=== PATIENT | male | born 1940 | race Caucasian/White ===

== ENCOUNTER 2017-01-07 20:35 | Emergency (ER) | payer MEDICARE ==
[2016-02-14 11:09] VITALS: BMI 35.2
[~2017-01-07 20:35] MED LIST: ASPIRIN EC81 M1 PO; ASPIRIN325 MG PO; BACTRIM DS TABL1 TAB PO; BENADRYL25 MG PO; ELIQUIS2.5 MG PO; FOLATE0.4 MG PO; GLIMEPIRIDE4 MG PO; GLUCOPHAGE500 MG PO; HYDROCODONE-APA1 TAB PO; METOPROLOL TART25 MG PO; OMEPRAZOLE20 M1 PO; ZYRTEC10 MG PO
[2017-01-07 23:18] LABS: APPEARANCE SLT CLOUDY (CLEAR); BILIRUBIN NEGATIVE (NEGATIVE); COLOR YELLOW (YELLOW); GLUCOSE 500 mg/dL (NEGATIVE); KETONE NEGATIVE (NEGATIVE); LEUKOCYTE ESTERASE 2+ (NEGATIVE); NITRITE NEGATIVE (NEGATIVE); PROTEIN NEGATIVE (NEGATIVE); UROBILINOGEN NORMAL (NORMAL)
[2017-01-07 23:23] LABS: BACTERIA MANY /hpf (NONE SEEN); EPITHELIAL CELLS 0-5 /hpf (0-5); RED CELLS - URINE 0-5 /hpf (0-5)
== END 2017-01-07 23:38 | disposition home or self-care (01) ==
LOC: D.ER 20:35
PROVIDERS: Emergency Medicine
DX: R33.9 Retention of urine, unspecified (principal); E11.9 Type 2 diabetes mellitus without complications; Z85.46 Personal history of malignant neoplasm of prostate; N39.0 Urinary tract infection, site not specified

== ENCOUNTER 2017-11-07 11:48 | Inpatient (IN) | payer MEDICARE ==
[~2017-11-07] VITALS: Ht 186.7 cm; Wt 126.8 kg
--- NOTE | ~2017-11-07 | HEMODYNAMI ---
PATIENT:CHERELLE AGEE MEDICAL RECORD: [id number] : 40 [facility] [id number] ADMISSION DATE: 11/07/17 Generatedon:11/07/201713:39 Patient name: CHERELLE AGEE Patient #: [id number] SSN: DO B: 1940 Date of study: 11/07/2017 Page: Of Hemodynamic Procedure Report Patient Data Patient Demographics Procedure consent was obtained First Name: CHERELLE Gender: Male Last Name: CYNDIE : 1940 Patient #: [id number] Age: 77 year(s) Race: Unknown Additional ID: [id number] Contact details Address: [address] [place] [address] State: [place] City: [facility] Zip code: [address] Admission Admission Data Admission Date: 11/07/2017 Admission Time: 13:30 Room #: D.T02 Procedure Procedure Types Cath Procedure Diagnostic Procedure LHC LHC w/Coronaries Temporary Pacemaker PCI Procedure AMI/SVG/AXMINSTER WEAVER PTCA or Stent AMI-BMS/NATALY Initial Procedure Description Procedure Date Procedure Date: 11/07/2017 Procedure Start Time: 13:01 Procedure End Time: 13:38 Procedure Staff Name Function Beka Garcia MD Performing Physician Carmine Meda RT Monitor Jessika Cline RN Nurse Dax Knapp RT Scrub Procedure Data Cath Procedure Fluoroscopy Diagnostic fluoroscopy Total fluoroscopy Time: 5.9 time: 5.9 min min Diagnostic fluoroscopy Total fluoroscopy dose: 740 dose: 740 mGy mGy Contrast Material Contrast Material Type Amount (ml) Isovue 300 186 Entry Location Entry Primary Successful Side Size Upsize Upsize Entry Closure Nieto ccessful Closure Location (Fr) 1 (Fr) 2 (Fr) Remarks Device Remarks Femoral Right 6 Fr Exoseal artery Short Femoral Right 7 Fr Manual vein Short Compression Estimated blood loss: 10 ml Diagnostic catheters Device Type Used For End Catheter Placement MULTIPACK JL 4.0 5Fr Procedure catheter DIAGNOSTIC JL 3.5 5Fr Procedure catheter ([id number]) DIAGNOSTIC JL 3.5 5Fr Procedure catheter ([id number]) MULTIPACK 3DRC 5Fr Procedure catheter MULTIPACK Pigtail 5 Fr Procedure catheter Procedure Complications No complications Procedure Medications Medication Administration Route Dosage Oxygen NC 2 l/min Lidocaine 2% added to field 20 Heparin Flush Bag added to field 2 bags (1000units/500ml NS) Zofran I.V. 4 mg 0.9% NaCl I.V. bolus 1000 ml Versed I.V. 1 mg Fentanyl I.V. 50 mcg Versed I.V. 1 mg Fentanyl I.V. 50 mcg Heparin Bolus I.V. 5000 units Fentanyl I.V. 100 mcg Integrilin (Bolus I.V. 11.3 ml 2mg/ml) unlisted medication I.V. 30 mg Plavix P.O. 600 mg Hemodynamics Rest Heart Rate: 49 (bpm) Pressure Samples Time Site Value (mmHg) Purpose Heart Use Rate(bpm) 13:11 AO 114/56(77) Snapshot 50 13:15 LV 131/16,25 Snapshot 61 13:16 AO 130/64(89) Pullback 60 13:16 LV 122/19,24 Pullback 60 Gradients Valve Time Site 1 Site 2 Mean SEP/DFP Peak To Heart Use (mmHg) (sec/min) Peak Rate (mmHg) (bpm) Aortic 13:16 LV AO 0 60 122/19,24 130/64(89) Calculations Valve P-P Mean Valve Index Valve Source Name Gradient Area Flow (cm2) Aortic 0 0 Snapshots Pre Cath Intra NCS Post Cath Vital Signs Time Heart Resp SPO2 etCO2 NIBP (mmHg) Rhythm Pain Status Sedation Rate (ipm) (%) (mmHg) Level (bpm) 12:53:24 49 11 98 0 130/69(91) NSR 9 (11) , 10(A) Excruciating unbearable 12:57:52 48 17 100 0 133/71(111) NSR 9 (11) , 10(A) Excruciating unbearable 13:02:15 52 19 98 0 116/71(100) NSR 9 (11) , 10(A) Excruciating unbearable 13:06:37 28 13 98 0 105/71(84) NSR 9 (11) , 10(A) Excruciating unbearable 13:10:57 48 10 99 0 118/65(103) NSR 9 (11) , 10(A) Excruciating unbearable 13:15:21 78 29 99 0 125/68(105) NSR 9 (11) , 10(A) Excruciating unbearable 13:19:45 61 15 99 0 132/77(112) NSR 9 (11) , 10(A) Excruciating unbearable 13:24:14 61 15 99 0 139/73(115) NSR 9 (11) , 10(A) Excruciating unbearable 13:28:44 60 33 100 0 143/80(119) NSR 9 (11) , 10(A) Excruciating unbearable 13:33:19 67 14 100 0 142/73(109) NSR 9 (11) , 10(A) Excruciating unbearable 13:37:51 59 10 100 0 141/77(118) NSR 9 (11) , 10(A) Excruciating unbearable Medications Time Medication Route Dose Verified Delivered Reason Notes Effectiveness by by 12:55:15 Oxygen NC 2 Beka Buffie used for l/min St Frank Cline RN procedure 12:55:21 Lidocaine 2% added 20ml Beka Beka for local to vial [facility] anesthetic field MD MIRELES 12:55:27 Heparin Flush added 2 Beka Beka used for Bag to bags [facility] procedure (1000units/500ml field MD MIRELES NS) 12:55:35 Zofran I.V. 4 mg Beka Jessika Per physician [facility] Frank Cline RN, MD 12:55:44 0.9% NaCl I.V. 1000 Beka Rosen Per physician bolus ml [facility] Frank Cline RN, MD 12:58:09 Versed I.V. 1 mg Beka Buffie for sedation [facility] Frank Cline RN, MD 12:58:14 Fentanyl I.V. 50 Beka Buffie for sedation mcg [facility] Frank Cline RN, MD 13:01:38 Versed I.V. 1 mg Ebka Buffie for sedation [facility] Frank Cline RN, MD 13:01:42 Fentanyl I.V. 50 Beka Buffie for sedation mcg [facility] Frank Cline RN, MD 13:02:27 Heparin Bolus I.V. 5000 Beka Buffie for verifi ed units [facility] Frank Cline RN anticoagulation with dr MD abdi 13:13:23 Fentanyl I.V. 100 Beka Buffie for sedation [facility] St Frank Cline RN, MD 13:14:52 Integrilin I.V. 11.3 Beka Rosen for wasted (Bolus 2mg/ml) ml St Frank Cline RN antiplatelet 8.7 ml therapy of vial 13:22:49 toradol I.V. 30 mg Beka Rosen Per physician [facility] Frank Cline RN, MD 13:34:56 Plavix P.O. 600 Beka Rosen for mg [facility] Frank Cline RN antiplatelet therapy Procedure Log Time Note 12:30:50 Dax Knapp RT(R) (CV) sent for patient. Start room use. 12:40:57 Time tracking: Regular hours (M-F 7:00 - 5:00) 12:41:01 Plan of Care:Hemodynamics will remain stable., Cardiac rhythm will remain stable., Comfort level will be maintained., Respiratory function will remain adequate., Patient/ family verbilizes understanding of procedure., Procedure tolerated without complication., Recovers from procedure without complications.. 12:45:20 Use device set Radial Dx or PCI 12:45:23 Use device set NOEMY PCI 12:46:09 Patient received from ED to CCL 3 Alert and oriented. Tansferred to table in Supine position. 12:46:10 Correct patient and procedure confirmed by team. 12:46:11 ECG and BP/O2 sat monitors applied to patient. 12:46:12 Signed procedure consent form obtained from patient. 12:52:02 Vital chart was started 12:55:15 Oxygen 2 l/min NC was administered by Jessika Cline RN; used for procedure; 12:55:21 Lidocaine 2% 20ml vial added to field was administered by Beka Garcia MD; for local anesthetic; 12:55:27 Heparin Flush Bag (1000units/500ml NS) 2 bags added to field was administered by Beka Garcia MD; used for procedure; 12:55:35 Zofran 4 mg I.V. was administered by Jessika Cline RN; Per physician; 12:55:44 0.9% NaCl 1000 ml I.V. bolus was administered by Jessika Cline RN; Per physician; 12:55:56 Baseline sample Acquired. 12:55:56 Full Disclosure recording started 12:55:59 Rhythm: sinus bradycardia 12:56:04 H&P Date Dictated: 11/07/2017 Emergent; H&P N/A. 12:56:07 Pre-procedure instructions explained to patient. 12:56:07 Pre-op teaching completed and patient verbalized understanding. 12:56:10 Family in waiting room. 12:56:11 Patient NPO since Midnight. 12:56:13 Is the patient allergic to Iodine/contrast media? No. 12:56:14 Is patient on blood thinner?No 12:56:16 Patient diabetic? Yes. 12:56:17 If diabetic: On Metformin? Yes 12:56:19 If on Metformin: Last Dose? 11/06/2017 12:56:23 Previous problem with sedation/anesthesia? No ? 12:56:24 Snore? Yes 12:56:25 Sleep apnea? No 12:56:26 Deviated septum? No 12:56:26 Opens mouth fully? Yes 12:56:27 Sticks out tongue? Yes 12:56:29 Airway obstruction? No ? 12:56:31 Dentures? No ? 12:56:33 Pre procedure: right dorsailis pedis pulse 1+ Palpable, but thready & weak; easily obliterated 12:56:45 Patient pain scale 9/10 Physician observed.. 12:56:53 IV patent on arrival in left hand with 0.9% NaCl at KVO. 12:56:58 IV patent on arrival in right forearm with 0.9% NaCl at KVO. 12:57:00 Lab results completed and on chart. 12:57:03 Right groin area was prepped with chlora-prep and draped in sterile fashion 12:57:03 Alarms reviewed by R. N. 12:57:04 Sharps counted by scrub and verified by R.N. 12:57:05 --------ALL STOP TIME OUT------ 12:57:05 Final Timeout: patient, procedure, and site verified with staff and physician. All members of the team are in agreement. 12:57:07 Right groin site verified by team. 12:57:11 Physical assessment completed. ASA score P 3 - A patient with severe systemic disease as per Beka Garcia MD. 12:57:13 Sedation plan: IV Moderate Sedation Medication:Versed, Fentanyl 12:57:53 ACIST Syringe (74925) opened to sterile field. 12:57:54 Bag Decanter (2002S) opened to sterile field. 12:57:55 ACIST Hand Control (41128) opened to sterile field. 12:57:56 ACIST Manifold (38183) opened to sterile field. 12:57:56 Tegaderm 4 x 4 (1626W) opened to sterile field. 12:58:07 Medline Cath Pack ([id number]) opened to sterile field. 12:58:07 DIAGNOSTIC WIRE .035 260cm J wire (354543) opened to sterile field. 12:58:09 Versed 1 mg I.V. was administered by Jessika Cline RN; for sedation; 12:58:10 INFLATOR Merit BasixCompak (JD7290) opened to sterile field. 12:58:11 SHEATH 7FR Bolt (ZPA566) opened to sterile field. 12:58:14 Fentanyl 50 mcg I.V. was administered by Jessika Cline RN; for sedation; 12:58:14 SHEATH Prelude 6Fr 0.035 (TIU-4K-36-035) opened to sterile field. 12:58:15 5Fr J Tip Temporary Pacing Catheter ([id number]) opened to sterile field. 12:58:23 Use device set Multipack Set 12:58:25 DIAGNOSTIC Multipack 5Fr catheter set (KY4655) opened to sterile field. 13:01:11 Procedure started. 13:01:14 Local anesthetic to right femoral artery with Lidocaine 2% by Beka Garcia MD.INITIAL ACCESS ONLY 13:01:25 A 6 Fr Short sheath was inserted into the Right Femoral artery 13:01:38 Versed 1 mg I.V. was administered by Jessika Cline RN; for sedation; 13:01:38 A 7 Fr Short sheath was inserted into the Right Femoral vein 13:01:42 Fentanyl 50 mcg I.V. was administered by Jessika Cline RN; for sedation; 13:01:56 Zero performed for pressure channel P1 13:02:27 Heparin Bolus 5000 units I.V. was administered by Jessika Cline RN; for anticoagulation; verified with dr abdi 13:03:28 Temporary pacer inserted 13:05:01 Temporary pacer turned on with the following settings: Rate 50, MA 3, Mode: Asynchronous. 13:05:12 A MULTIPACK JL 4.0 5Fr catheter was advanced over the wire and used for Procedure. 13:06:49 Catheter removed. unable to cannulate vessel. 13:06:56 A DIAGNOSTIC JL 3.5 5Fr catheter (532051O) was advanced over the wire and used for Procedure. 13:09:12 Catheter removed. Unable to cannulate vessel due to tortuous Aorta. Sheath exchanged for long sheath. 13:09:19 SHEATH 6FR Brite Tip 35cm (902902C) opened to sterile field. 13:09:24 A DIAGNOSTIC JL 3.5 5Fr catheter (702005E) was advanced over the wire and used for Procedure. 13:11:39 LCA angiography performed. 13:12:42 Catheter removed. 13:12:55 A MULTIPACK 3DRC 5Fr catheter was advanced over the wire and used for Procedure. 13:13:23 Fentanyl 100 mcg I.V. was administered by Jessika Cline RN; for sedation; 13:13:36 RCA angiography performed. 13:14:24 Catheter removed. 13:14:32 A MULTIPACK Pigtail 5 Fr catheter was advanced over the wire and used for Procedure. 13:14:50 WHISPER 300cm guide wire ([id number]) opened to sterile field. 13:14:52 Integrilin (Bolus 2mg/ml) 11.3 ml I.V. was administered by Jessika Cline RN; for antiplatelet therapy; wasted 8.7 ml of vial 13:16:22 LV angiography performed. 13:16:24 LV gram done using OLIVEIRA 13:16:31 EF : 50 % 13:16:33 LV hemodynamics recorded. 13:16:36 Injector settings: Ml/sec: 10, Volume: 20, 13:17:07 Aortic Root visualized 13:17:20 Injector settings: Ml/sec: 15, Volume: 30, 13:18:14 Catheter removed. 13:18:18 GUIDE 6FR HS I catheter (LA6HSI) opened to sterile field. 13:18:50 6 Fr HS 1 guide catheter was inserted over the wire 13:19:24 Whisper wire advanced. 13:20:14 Wire advanced across lesion. 13:21:54 Place stent Inflation Number: 1 A INTEGRITY OTW 4.0 X 9 stent ([id number]) was prepped and advanced across the Dist RCA. The stent was deployed at 14 RANDA for 0:45 (min:sec). 13:22:36 Stent catheter was removed intact over wire. 13:22:37 Wire removed. 13:22:37 Guide catheter removed. 13::45 Temporary pacer turn off 13::46 Temporary pacer removed 13::49 toradol 30 mg I.V. was administered by Jessika Cline RN; Per physician; 13:23:39 Brite tip sheath exchange for short 6. 13:24:04 SHEATH 6Fr Prelude ([id number]) opened to sterile field. 13:24:26 EXOSEAL 6Fr (EX600) opened to sterile field. 13:25:06 Sheath removed intact; hemostasis achieved with Exoseal to the Right Femoral artery. 13:27:07 Procedure ended.(Physican Out) 13:27:32 Fluoroscopy time 05.90 minutes. 13:27:37 Fluoroscopy dose: 740 mGy 13:27:37 Flurop Dose total: 740 13:27:58 Contrast amount:Isovue 300 186ml. 13:28:09 Sharps counted by scrub and verified by R.N. 13:31:15 Sheath removed intact; hemostasis achieved with Manual Compression to the Right Femoral vein. 13:31:17 Insertion/operative site no bleeding no hematoma. 13:31:20 Post-op/insertion site Right Femoral artery dressed using a 4 x 4 and Tegaderm. 13:31:21 Post Procedure Pulses reassessed and unchanged 13:31:24 Post-procedure physical assessment completed. ASA score P 3 - A patient with severe systemic disease as per Beka Garcia MD. 13:31:33 Post procedure rhythm: sinus rhythm 13:31:36 Estimated blood loss: 10 ml 13:31:38 Post procedure instruction explained to patient.Patient verbalizes understanding. 13:31:38 Patient needs reinforcement of post procedure teaching. 13:31:59 Procedure and supply charges have been captured, reviewed, submitted and are correct. 13:32:02 Procedure Complication : No complications 13:34:56 Plavix 600 mg P.O. was administered by Jessika Cline RN; for antiplatelet therapy; 13:38:30 Vital chart was stopped 13:38:31 See physician's report for complete and final results. 13:38:35 Report given to PCU. 13:38:38 Patient transfered to PCU with Bed. 13:38:41 Procedure ended. 13:38:41 Full Disclosure recording stopped 13:38:45 End room use (Document Last) Intervention Summary Intervention Notes Time ActionType Lesion and Equipment Action# Pressure Duration Attributes Used 13:21:54 Place stent Dist RCA INTEGRITY 1 14 00:45 OTW 4.0 X 9 stent ([id number]) Device Usage Item Name Manufacture Quantity Catalog Hospital Part Current M inimal Lot# / Number Charge Number Stock Stock Serial# Code ACIST Syringe Acist 1 62340 087108 685648 332393 2 0 (16094) Medical Systems WorldRemit Bag Decanter Microtek 1 2001S 220816 30445 843642 5 () Medical Inc. ACIST Hand Acist 1 57208 900585 839065 608676 5 Control (14580) Medical Systems WorldRemit ACIST Manifold Acist 1 62330 362692 134438 556378 5 (83880) Medical Systems Inc Tegaderm 4 x 4 3M 1 1626W 875301 479022 483553 5 (1626W) Medline Cath Cardinal 1 [id number] 073635 66931 373594 5 Pack Health ([id number]) DIAGNOSTIC WIRE St Jorge 1 795480 349056 097515 356948 3 0 .035 260cm J wire (550556) INFLATOR Merit Merit 1 GU6416 499675 188553 096890 1 5 BasixCompak Medical (HG6889) SHEATH 7FR Terumo 1 GPS431 449995 833076 494582 5 Bolt (NSF386) SHEATH Prelude Merit 1 WAO-5C-06-35 012291 3492908 918010 5 6Fr 0.035 Medical (SKJ-1F-36-035) 5Fr J Tip Dacosta 1 [id number] 664743 03846 981031 2 Temporary Lifesciences Pacing Catheter ([id number]) DIAGNOSTIC Cardinal 1 GF1035 517384 18154 396595 3 0 Multipack 5Fr Health catheter set (VH5213) MULTIPACK JL Cardinal 1 708343 5 4.0 5Fr Health catheter DIAGNOSTIC JL Cardinal 1 [id number] 986614 342933 501328 5 3.5 5Fr Health catheter (630422C) SHEATH 6FR Cardinal 1 [id number] 727106 134677 815616 1 Brite Tip 35cm Health (154908H) MULTIPACK 3DRC Cardinal 1 449240 5 5Fr catheter Health MULTIPACK Cardinal 1 790653 5 Pigtail 5 Fr Health catheter WHISPER 300cm Garcia 1 [id number] 536077 031900 326492 5 guide wire Vascular (1088154PC) GUIDE 6FR HS I Medtronic 1 LA6HSI 918702 56115 813600 1 catheter (LA6HSI) INTEGRITY OTW Medtronic 1 [id number] 630415 4536374 4 [id number] 4.0 X 9 stent ([id number]) SHEATH 6Fr Merit 1 [id number] 823809 343310 821995 5 Prelude Medical ([id number]) EXOSEAL 6Fr Cardinal 1 EX600 747396 748823 195999 1 0 (EX600) Health Signature Audit [place] Stage Time Signature Unsigned Intra-Procedure 11/07/2017 Carmine Mead 1:39:22 PM RT(R) Signatures Monitor : Carmine Mead RT Signature : Date : Time : [place] [id number] [place] [address]
--- NOTE | ~2017-11-07 | HP ---
PATIENT: CHERELLE AGEE MEDICAL RECORD: [id number] ACCOUNT: [id number] LOCATION:[address] : 40 ADMISSION DATE: 11/07/17 HISTORY AND PHYSICAL EXAMINATION HISTORY OF PRESENT ILLNESS: A 77-year-old gentleman with a known history of coronary artery disease, status post stenting, unknown vessel stented previously, presented to the ER with 3-hour history of marked dyspnea and chest pain. He has 2 types of pain, one acute coronary syndrome type of symptomatology and second more of a musculoskeletal and was left shoulder pain. He has underlying right bundle branch block. Difficult to interpret acute coronary syndrome, he is intermittently bradycardic, being brought to director of labor relations on an urgent basis. PAST MEDICAL HISTORY: Includes; 1. History of diabetes mellitus. 2. Hypertension. 3. Coronary artery disease as described above. 4. Osteoarthritis. MEDICATIONS: Include aspirin 81 mg p.o. q. day, Amaryl 0.5 b.i.d., metformin 2 gram b.i.d., omeprazole 20 b.i.d. SOCIAL HISTORY: Nonsmoker, nondrinker. PHYSICAL EXAMINATION: GENERAL Elderly gentleman, in mild distress. VITAL SIGNS: 116/72, pulse between 40 and 63. HEENT: Normocephalic, atraumatic. NECK: No bruits noted. HEART: Cecilio. S4 gallop is noted. LUNGS: Clear. EXTREMITIES: Pulse 2+. No edema. DIAGNOSTIC DATA: ECG shows underlying right bundle. IMPRESSION: director of laboratory operations on urgent basis. Given his symptomatology, we will also plan for aortography as well as temporary pacer. TRANSINT:[id number] Voice Confirmation ID: [id number] DOCUMENT ID: [id number] ULISSES SALGUERO MD at 0816 CC: [id number] DICTATION DATE: 11/07/17 1334 AUTO HEATER MECHANIC: 11/07/17 1448 ADM IN [place] [id number] [place] [id number]
--- NOTE | ~2017-11-07 | DS ---
PATIENT:CHERELLE AGEE :40 MEDICAL RECORD: [id number] DISCHARGE SUMMARY ADMISSION DATE: 11/07/17 DISCHARGE DATE: 11/08/17 DATE OF ADMISSION: 11/07/2017. DATE OF DISCHARGE: 11/08/2017 DIAGNOSES: 1. Acute coronary syndrome. 2. Hypertension. 3. Diabetes mellitus. BRIEF HISTORY AND HOSPITAL COURSE: Admitted with acute coronary syndrome including bradyarrhythmias brought to the laborer stores. Temporary wire was placed. He underwent stenting of the right coronary without sequelae. Discharged home in good condition. DIET: ADA diet. ACTIVITY: As tolerated. FOLLOWUP: In the office approximately 1 month. TRANSINT:[id number] Voice Confirmation ID: [id number] DOCUMENT ID: [id number] ULISSES SALGUERO MD at 1505 CC: [id number] DICTATION DATE: 12/16/17 1414 CITY DISTRIBUTION CLERK: 12/16/17 1431 DIS IN 11/08/17 [place] [id number] [place] [address]
--- NOTE | ~2017-11-07 | OP ---
PATIENT NAME: CHERELLE AGEE MEDICAL RECORD: [id number] :40 LOCATION:D.M2 D.2119 ADMISSION DATE:11/07/17 SURGEON: ULISSES SALGUERO MD DATE OF OPERATION: 11/07/2017 PROCEDURES: Left heart catheterization, temporary pacemaker, right femoral artery and vein approach respectively. CATHETERS: A 7-Peruvian on the left side, 6 on the arterial side. Procedure was well tolerated and the patient returned to perez, sheath removed. ExoSeal device was placed and manual pressure was held in venous line. DESCRIPTION OF PROCEDURE: Temporary pacemaker under fluoroscopic guidance: The temporary lead was placed into the right ventricular apex without difficulty. After adequate thresholds were obtained, the patient was set on baseline, backup at 50 beats per minute at output of 3. Left heart cath, selective angiography: Left ventriculography in 30-degree OLIVEIRA view normal wall motion and normal systolic function. Ascending aortogram shows a minimally dilated aortic root, no evidence of dissection. Minimal atherosclerotic debris. CORONARY ANATOMY: LEFT MAIN: Left main is free of disease. LAD: A small vessel, does not reach the apex, free of disease. CIRCUMFLEX: Again, small vessel. Probably middle part of the lateral wall, free of disease. RIGHT CORONARY ARTERY: At the takeoff of huge PD and PL shows a stenosis about 80%. PLAN: Intervention momentarily. INTERVENTION: Using indwelling 6-Peruvian sheath, hockey stick guide and catheter provided excellent guide catheter support, followed by a 300 cm Whisper wire to place this portion of the PDA. The stent deployed was a 4.0 x 9 mm [id number] stent up to 14 atmospheres. Final angiography shows excellent resolution, 80% stenosis, no significant residual. ANDRIA flow was 3 throughout the procedure. Heparin and Integrilin were used during the case. Sheath closed with ExoSeal device. TRANSINT:[id number] Voice Confirmation ID: [id number] DOCUMENT ID: [id number] ULISSES SALGUERO MD at 0816 CC: [id number] DICTATION DATE: 11/07/17 1332 MARKETING TECHNOLOGIST: 11/07/17 1418 [place] [address]
[2017-11-07] MEDS ORDERED: ASPIRIN325 MG PO (11:52)
[2017-11-07 12:16] LABS: BASOPHILS 0.2 % (0-2); HEMATOCRIT 38.2 % (42.0-54.0); HEMOGLOBIN 12.9 g/dL (13.5-17.5); IMMATURE GRANULOCYTES 0.2 % (0-5); LYMPHOCYTES 17.7 % (15-50); MCHC 33.8 g/dL (31.0-37.0); MCV 88.8 fL (80.0-100.0); MEAN PLATELET VOLUME 9.7 fL (7.4-10.4); MONOCYTES 5.1 % (2-11); NEUTROPHILS 75.8 % (40-80); PLATELET COUNT 230 10x3/uL (130-400); RDW 13.5 % (11.5-14.5); WBC 8.9 10x3/uL (4.8-10.8)
[2017-11-07 12:37] LABS: ALBUMIN 3.5 g/dL (3.4-5.0); ALKALINE PHOSPHATASE 78 U/L (46-116); ALT (SGPT) 41 U/L (10-68); CALC OSMOLALITY 291 mosm/kg (275-300); CALCIUM 9.3 mg/dL (8.5-10.1); CARBON DIOXIDE 28.4 mmol/L (21.0-32.0); CHLORIDE - SERUM 106 mmol/L (98-107); CREATININE - SERUM 1.5 mg/dL (0.6-1.3); GLUCOSE 221 mg/dL (74-106); POTASSIUM - SERUM 4.3 mmol/L (3.5-5.1); PROTEIN - SERUM 7.4 g/dL (6.4-8.2); SODIUM 142 mmol/L (136-145); UREA NITROGEN 19 mg/dL (7-18); eGFR NON AFRICAN AMERICAN 48 mL/min (90-120)
[2017-11-07 12:44] LABS: LIPASE 236 U/L (73-393); PRO BNP 107 pg/mL (0-450); TROPONIN-I < 0.017 ng/mL (0.000-0.060)
[2017-11-07] MEDS ORDERED: GLIMEPIRIDE1 MG PO (15:05)
[2017-11-07 18:57] VITALS: Ht 186.7 cm; Wt 126.8 kg
[2017-11-07 20:13] VITALS: BP 138/59
[2017-11-08 01:27] VITALS: BP 103/64
[2017-11-08 05:13] VITALS: BP 137/63
[2017-11-08 07:40] VITALS: BP 132/67
[2017-11-08] MEDS ORDERED: PLAVIX75 MG PO (09:01)
[2017-11-08] MEDS ORDERED: MEDROL DOSE PACK4 MG PO (09:02)
== END 2017-11-08 10:40 | disposition home or self-care (01) | DRG 249 ==
LOC: D.ER 11:48 → D.M2 13:30 → D.EDHOLD 13:30 → D.M2 14:21 → D.EDHOLD 14:22 → D.M2 14:49
PROVIDERS: Family Medicine; Internal Medicine Interventional Cardiology
PROC: B2111ZZ Fluoroscopy of Multiple Coronary Arteries using Low Osmolar Contrast (ICD-10-PCS; 2017-11-07)
PROC: B2151ZZ Fluoroscopy of Left Heart using Low Osmolar Contrast (ICD-10-PCS; 2017-11-07)
PROC: 5A1223Z Performance of Cardiac Pacing, Continuous (ICD-10-PCS; 2017-11-07)
PROC: 02703DZ Dilation of Coronary Artery, One Artery with Intraluminal Device, Percutaneous Approach (ICD-10-PCS; principal; 2017-11-07 13:00)
PROC: 4A023N7 Measurement of Cardiac Sampling and Pressure, Left Heart, Percutaneous Approach (ICD-10-PCS; 2017-11-07 13:00)
DX: I25.10 Atherosclerotic heart disease of native coronary artery without angina pectoris (principal); I10 Essential (primary) hypertension; E11.9 Type 2 diabetes mellitus without complications; I45.10 Unspecified right bundle-branch block

== ENCOUNTER → 2018-08-27 09:15 | Outpatient (CLI) | payer MEDICARE ==
[~2018-08-27 09:15] MED LIST changes: +GLIMEPIRIDE1 MG PO; +MEDROL DOSE PACK4 MG PO; +PLAVIX75 MG PO
--- NOTE | 2018-09-08 13:26 | EC ---
PATIENT:CHERELLE AGEE DATE OF SERVICE: 08/27/18 SEX: M MEDICAL RECORD: [id number] DATE OF : 40 LOCATION:D.[facility] AGE OF PATIENT: 78 ADMISSION DATE: 08/27/18 REFERRING PHYSICIAN: INTERPRETING PHYSICIAN: ULISSES SALGUERO MD ECHOCARDIOGRAM REPORT ECHO CHARGES 4 ECHO COMPLETE Date: 08/27/18 CLINICAL DIAGNOSIS: CAD ECHOCARDIOGRAPHIC MEASUREMENTS (adult normal given) AC root (d.<3.7cm) 4.4 cm LV Septum d (<1.2 cm> 1.5 cm Valve Excursion 1.8 cm LV Septum (systole) 1.7 cm Left Atria (s.<4.0cm> 4.4 cm LVPW d(<1.2cm) 1.6 cm RV (d.<2.3cm) 3.2 cm LVPW (sytole) 1.8 cm LV diastole(<5.6CM) 4.3 cm MV E-F(>70mm/sec) cm LV systole 3.2 cm LVOT Diameter 1.8 cm MV exc.(>10mm) 1.4 cm Est.ejection fraction (50-75%) % DOPPLER: LVIT cm/sec A 87.0 cm/sec E 47.0 cm/sec LA cm/sec RVSP 30 mmHg LVOT 111 cm/sec AOP1/2T m/s Asc. Ao 122 cm/sec RVOT 95 cm/sec RA cm/sec PA 134 cm/sec AV Gradient Peak 5.96 mmHg AV Mean 2.88 mmHg AV Area 2.5 cm MV Gradient Peak 3.67 mmHg MV Mean 0.93 mmHg MV Area cm COMMENTS: Employment Law Specialist: 2 IRAJ FLORES Freezer Person: 3 Dr. Begum TAPE# PACS Pericardial Effusion N DATE OF SERVICE: Adequate 2D, color flow, spectral Doppler, and M-Mode. LVH is present. LV internal dimension is normal. Wall motion is normal. EF is greater than or equal to 55%. Aortic valve is sclerotic. No evidence of stenosis on Doppler interrogation. Left atrium is dilated at 4.4 cm. Mitral valve shows no prolapse. Trace MR. Right-sided chamber size is grossly normal. Mild TR. TRANSINT:[id number] Voice Confirmation ID: [id number] DOCUMENT ID: [id number] ECHOCARDIOGRAM REPORT [id number] CHERELLE AGEE,ULISSES Chiang MD at 1326 CC: [id number] DICTATION DATE: 09/08/18 1249 SCRUM MASTER: 09/08/18 1312 DEP CLI 08/27/18 [place] [id number] [place] [address]
== END | disposition home or self-care (01) ==
LOC: D.HCCARDIO 09:15
DX: I25.10 Atherosclerotic heart disease of native coronary artery without angina pectoris (principal)

== ENCOUNTER → 2019-09-23 13:02 | Outpatient (CLI) | payer MEDICARE ==
[2017-11-07 18:57] VITALS: BMI 35.8
--- NOTE | 2019-09-24 14:16 | EC ---
PATIENT:CHERELLE AGEE DATE OF SERVICE: 09/23/19 SEX: M MEDICAL RECORD: [id number] DATE OF : 40 LOCATION:D.[facility] AGE OF PATIENT: 79 ADMISSION DATE: 09/23/19 REFERRING PHYSICIAN: INTERPRETING PHYSICIAN: ULISSES SALGUERO MD ECHOCARDIOGRAM REPORT ECHO CHARGES 4 ECHO COMPLETE Date: 09/23/19 CLINICAL DIAGNOSIS: HTN/CAD ASSESS EF AND VALVES ECHOCARDIOGRAPHIC MEASUREMENTS (adult normal given) AC root (d.<3.7cm) 3.6 cm LV Septum d (<1.2 cm> 1.5 cm Valve Excursion 1.4 cm LV Septum (systole) 1.6 cm Left Atria (s.<4.0cm> 5.1 cm LVPW d(<1.2cm) 1.7 cm RV (d.<2.3cm) 4.9 cm LVPW (sytole) 2.1 cm LV diastole(<5.6CM) 5.3 cm MV E-F(>70mm/sec) cm LV systole 3.2 cm LVOT Diameter 2.1 cm MV exc.(>10mm) 1.8 cm Est.ejection fraction (50-75%) % DOPPLER: LVIT cm/sec A 89.0 cm/sec E 48.0 cm/sec LA cm/sec RVSP 34 mmHg LVOT 92 cm/sec AOP1/2T m/s Asc. Ao 121 cm/sec RVOT 110 cm/sec RA cm/sec PA 158 cm/sec AV Gradient Peak 5.86 mmHg AV Mean 3.20 mmHg AV Area 3.2 cm MV Gradient Peak 3.91 mmHg MV Mean 1.05 mmHg MV Area cm COMMENTS: Hospitality House Supervisor: 2 IRAJ FLORES Warehouse Consultant: 3 Dr. Begum TAPE# PACS Pericardial Effusion N DATE OF SERVICE: Adequate 2D, color flow imaging, spectral Doppler, and M-Mode LVH is present. LV internal dimension is normal. Wall motion is normal. EF is greater than or equal to 55%. Aortic valve is tricuspid. No evidence of stenosis by Doppler interrogation. Left atrium dilated at 5.1 cm. Mitral valve shows no prolapse. Trace MR. Right-sided chambers are grossly normal. Mild TR. ECHOCARDIOGRAM REPORT [id number] CHERELLE AGEE TRANSINT:[id number] Voice Confirmation ID: [id number] DOCUMENT ID: [id number] ULISSES SALGUERO MD at 1416 CC: [id number] DICTATION DATE: 09/24/19837 TRANSMISSION DESIGN ENGINEER: 09/24/19 09 DEP CLI 09/23/19 [place] [id number] [place] [id number]
== END | disposition home or self-care (01) ==
LOC: D.HCCECHO 13:00
PROVIDERS: ATTEND Internal Medicine Interventional Cardiology
DX: I10 Essential (primary) hypertension (principal)

== ENCOUNTER 2020-08-13 15:07 | Inpatient (IN) | payer MEDICARE ==
[~2020-08-13] VITALS: Ht 186.7 cm; Wt 113.6 kg
--- NOTE | ~2020-08-13 | EC ---
PATIENT:CHERELLE AGEE DATE OF SERVICE: 08/13/20 SEX: M MEDICAL RECORD: [id number] DATE OF : 40 LOCATION:D[facility] AGE OF PATIENT: 80 ADMISSION DATE: 08/13/20 REFERRING PHYSICIAN: INTERPRETING PHYSICIAN: OTTONIEL MCKEON MD ECHOCARDIOGRAM REPORT ECHO CHARGES 4 ECHO COMPLETE Date: 08/14/20 CLINICAL DIAGNOSIS: CP ECHOCARDIOGRAPHIC MEASUREMENTS (adult normal given) AC root (d.<3.7cm) 3.2 cm LV Septum d (<1.2 cm> 1.0 cm Valve Excursion 1.6 cm LV Septum (systole) 1.5 cm Left Atria (s.<4.0cm> 5.2 cm LVPW d(<1.2cm) 1.6 cm RV (d.<2.3cm) 3.7 cm LVPW (sytole) 1.7 cm LV diastole(<5.6CM) 5.2 cm MV E-F(>70mm/sec) cm LV systole 4.1 cm LVOT Diameter 2.2 cm MV exc.(>10mm) 1.7 cm Est.ejection fraction (50-75%) % DOPPLER: LVIT cm/sec A 83 cm/sec E 87 cm/sec LA cm/sec RVSP 28 mmHg LVOT 132 cm/sec AOP1/2T m/s Asc. Ao 156 cm/sec RVOT 62 cm/sec RA cm/sec PA 96 cm/sec AV Gradient Peak 9.7 mmHg AV Mean 4.5 mmHg AV Area 3.2 cm MV Gradient Peak 4.7 mmHg MV Mean 1.4 mmHg MV Area cm COMMENTS: Americanization Teacher: [facility] Relationship Specialist: 4 Dr. Mckeon TAPE# Pericardial Effusion N DATE OF SERVICE: PROCEDURE: Transthoracic echocardiogram. FINDINGS: The left ventricle shows normal size, function, and structure. The patient has moderate concentric left ventricular hypertrophy. The patient has mild diastolic dysfunction. The patient's ejection fraction is 55%. RIGHT VENTRICLE: Appears to be mildly dilated. The patient has normal function and structure. ECHOCARDIOGRAM REPORT [id number] CHERELLE AGEE AORTIC VALVE: Appears to be grossly normal. MITRAL VALVE: Has trace to mild mitral regurgitation, but normal structure and function. TRICUSPID VALVE: Has normal structure and function with trace tricuspid regurgitation. The patient has normal right ventricular systolic pressures. There is no pericardial effusion or pleural effusion. IMPRESSION: The patient has [id number] concentric left ventricular hypertrophy, otherwise normal echocardiogram. TRANSINT:[id number] Voice Confirmation ID: [id number] DOCUMENT ID: [id number] OTTONIEL MCKEON MD CC: [id number] DICTATION DATE: 08/14/20 1336 OIL LABORATORY ANALYST: 08/14/202128 ADM IN [facility] [address] [place] [id number]
[2020-08-13 15:26] VITALS: BP 166/73
[2020-08-13 15:39] LABS: BASOPHILS 0.1 % (0-2); EOSINOPHILS 0 % (0-7); HEMATOCRIT 38.7 % (42.0-54.0); HEMOGLOBIN 12.5 g/dL (13.5-17.5); IMMATURE GRANULOCYTES 0.1 % (0-5); LYMPHOCYTE ABS# 0.88 10x3/uL (1.32-3.57); LYMPHOCYTES 10.4 % (15-50); MCH 28.3 pg (26.0-34.0); MCHC 32.3 g/dL (31.0-37.0); MCV 87.6 fL (80.0-100.0); MEAN PLATELET VOLUME 9.3 fL (7.4-10.4); MONOCYTES 5.3 % (2-11); NEUTROPHIL ABS# 7.11 10x3/uL (1.78-5.38); NEUTROPHILS 84.1 % (40-80); PLATELET COUNT 158 10x3/uL (130-400); RBC 4.42 10x6/uL (4.20-6.10); RDW 14.8 % (11.5-14.5); WBC 8.5 10x3/uL (4.8-10.8)
[2020-08-13 15:47] LABS: APTT 31.1 SECONDS (22.8-39.4); CALC OSMOLALITY 285 mosm/kg (275-300); CALCIUM 9.2 mg/dL (8.5-10.1); CARBON DIOXIDE 26.6 mmol/L (21.0-32.0); CHLORIDE - SERUM 101 mmol/L (98-107); CREATININE - SERUM 1.5 mg/dL (0.6-1.3); GLUCOSE 206 mg/dL (74-106); INR 1.07 (0.85-1.17); POTASSIUM - SERUM 4.4 mmol/L (3.5-5.1); PROTIME 12.9 SECONDS (11.6-15.0); SODIUM 136 mmol/L (136-145); UREA NITROGEN 34 mg/dL (7-18); eGFR NON AFRICAN AMERICAN 48 mL/min (90-120)
--- NOTE | 2020-08-13 15:47 | NUR ---
PATIENT TAKEN TO CT AT THIS TIME. WILL START SALINE BOLUS UPON RETURN.
[2020-08-13 16:00] VITALS: BP 159/59
[2020-08-13 16:05] LABS: ALBUMIN 3.4 g/dL (3.4-5.0); ALKALINE PHOSPHATASE 68 U/L (30-120); ALT (SGPT) 32 U/L (10-68); BILIRUBIN - TOTAL 0.51 mg/dL (0.2-1.3); CKMB 0.1 U/L (0.0-3.6); CREATINE KINASE 65 UL (21-232); MAGNESIUM - SERUM 1.8 mg/dL (1.8-2.4); PRO BNP 473 pg/mL (0-450); PROTEIN - SERUM 7.7 g/dL (6.4-8.2)
[2020-08-13 16:11] LABS: TROPONIN-I < 0.017 ng/mL (0.000-0.060)
--- NOTE | 2020-08-13 16:41 | NUR ---
URINE COLLECTED AND SENT TO LAB, [facility]. STATES THAT PATIENT HAS BEEN HAVING DIFFICULTY URINATING.
[2020-08-13 16:45] VITALS: BP 164/61
[2020-08-13 16:51] LABS: BILIRUBIN NEGATIVE (NEGATIVE); KETONE NEGATIVE (NEGATIVE); NITRITE POSITIVE (NEGATIVE); UROBILINOGEN NORMAL mg/dL (< 2)
[2020-08-13 16:55] LABS: WHITE CELLS - URINE >50 HPF (0-1)
[2020-08-13 16:56] LABS: BACTERIA FEW HPF (NONE SEEN); SQUAMOUS EPITHELIAL 0-5 HPF (0-4)
--- NOTE | 2020-08-13 17:30 | NUR ---
PATIENT TAKEN TO CT
[2020-08-13 18:00] VITALS: BP 140/58
[2020-08-13 18:15] VITALS: BP 131/58
--- NOTE | 2020-08-13 18:44 | NUR ---
SITUATED IN ROOM, ORIENTED TO ROOM AND UNIT. AT BEDSIDE. 200ML URINE UPON ENTERING ROOM. RESTING COMFORTABLY. DENIES ANY NEEDS AT THIS TIME. BED IN LOWEST POSITION, BED RAILS X2, CALL LIGHT WITHIN REACH. WILL CONTINUE POC.
--- NOTE | 2020-08-13 19:19 | NUR ---
PATIENT RESTING IN BED WITH NO S/S OF DISTRESS. PATIENT REQUESTED HOLLOW WARE MAKER BE CALLED IN REGARDS TO HOME PAIN MEDICATION. PATIENT STATED HE THINKS HE TAKES NORCO-10, HOWEVER, PATIENT'S STATES SHE THINKS HE TAKES NORCO-5 AT HOMES. WILL CALL NATHALIE SALAZAR AFTER ADMISSION IS COMPLETED.
[2020-08-13 20:15] VITALS: BP 139/58
[2020-08-13 20:37] VITALS: BMI 32.6
[2020-08-13] MEDS ORDERED: HYDROCODON-ACE1 EAC7 PO (20:51)
[2020-08-13] MEDS ORDERED: ULTRAM50 MG PO (20:51)
[2020-08-13] MEDS ORDERED: LISINOPRIL2.5 MG PO (20:51)
[2020-08-13] MEDS ORDERED: ZYLOPRIM300 MG PO (20:52)
[2020-08-13] MEDS ORDERED: GLUCOTROL XL 1010 MG PO (20:52)
[2020-08-13 21:15] LABS: % SATURATION 9 % (15-55); IRON 25 ug/dl (35-150); TOTAL IRON BIND CAPACITY 260 ug/dl (260-445); UNSAT IRON BIND CAPACITY 235 ug/dl (150-375)
--- NOTE | 2020-08-13 21:18 | NUR ---
ALEJANDRO SALAZAR APN IN REGARDS TO PATIENT'S REQUEST FOR PAIN MED
[2020-08-13 22:22] LABS: CKMB 0.1 U/L (0.0-3.6); CREATINE KINASE 78 UL (21-232); TROPONIN-I 0.024 ng/mL (0.000-0.060)
[2020-08-14 04:00] VITALS: BP 129/61
[2020-08-14 05:06] LABS: CKMB 0.5 U/L (0.0-3.6); CREATINE KINASE 65 UL (21-232)
[2020-08-14 08:00] LABS: ANION GAP 10.5 mmol/L (8-16); BILIRUBIN - TOTAL 0.37 mg/dL (0.2-1.3); CALCIUM 8.7 mg/dL (8.5-10.1); CARBON DIOXIDE 28.3 mmol/L (21.0-32.0); CREATININE - SERUM 1.5 mg/dL (0.6-1.3); POTASSIUM - SERUM 3.8 mmol/L (3.5-5.1); PROTEIN - SERUM 6.4 g/dL (6.4-8.2)
--- NOTE | 2020-08-14 08:04 | NUR ---
AWAKE AND ALERT. ORIENTED X3. AT BEDSIDE. LUNGS ARE CLEAR BILATERALLY, NO COUGH NOTED. REPORTED DIDN'T SLEEP WELL WITHOUT CPAP. WILL BRING FROM HOME TODAY. IV TO RIGHT HAND PATENT WITHOUT REDNESS AT INSERTION SITE. REQUESTED COFFEE THIS AM. DENIES NEEDS.
--- NOTE | 2020-08-14 08:45 | NUR ---
ATE ALL OF BREAKFAST. TOOK AM MEDS WITHOUT DIFFICULTY. DENIES NEEDS.
[2020-08-14 08:46] LABS: BASOPHILS 0.2 % (0-2); EOSINOPHILS 0 % (0-7); HEMATOCRIT 36.3 % (42.0-54.0); HEMOGLOBIN 11.5 g/dL (13.5-17.5); IMMATURE GRANULOCYTES 0.2 % (0-5); LYMPHOCYTE ABS# 1.28 10x3/uL (1.32-3.57); LYMPHOCYTES 20.2 % (15-50); MCH 28.1 pg (26.0-34.0); MCHC 31.7 g/dL (31.0-37.0); MCV 88.8 fL (80.0-100.0); MEAN PLATELET VOLUME 9.9 fL (7.4-10.4); MONOCYTES 7.9 % (2-11); NEUTROPHIL ABS# 4.55 10x3/uL (1.78-5.38); NEUTROPHILS 71.5 % (40-80); PLATELET COUNT 162 10x3/uL (130-400); RBC 4.09 10x6/uL (4.20-6.10); WBC 6.4 10x3/uL (4.8-10.8)
[2020-08-14 09:01] LABS: CKMB 0.2 U/L (0.0-3.6); CREATINE KINASE 67 UL (21-232)
[2020-08-14 09:02] LABS: TROPONIN-I < 0.017 ng/mL (0.000-0.060)
[2020-08-14 09:19] VITALS: BP 142/61
[2020-08-14 09:51] VITALS: Ht 186.7 cm; Wt 113.6 kg
--- NOTE | 2020-08-14 10:00 | NUR ---
RESTING WITH EYES CLOSED. NO NEEDS NOTED.
--- NOTE | 2020-08-14 12:30 | NUR ---
LUNCH SERVED IN ROOM. AT BEDSIDE. ECHO IN PROGRESS.
--- NOTE | 2020-08-14 14:41 | NUR ---
GIVEN 650MG TYLENOL PO FOR C/O ABDOMINAL PAIN LEVEL 10. WILL MONITOR. ALSO SPOKE WITH MARTIN PRIETO RE C/O PAIN. SHE WILL PLACE ORDERS.
--- NOTE | 2020-08-14 15:47 | NUR ---
GIVEN ULTRAM PO PER ORDERS. PAIN LEVEL CONTINUES AT 8. FAMILY AT BEDSIDE.
[2020-08-14 17:56] VITALS: BP 136/81
--- NOTE | 2020-08-14 19:00 | NUR ---
AT BEDSIDE. NO NEEDS NOTED. NO CHANGES NOTED. SKIN CARE PER STAFF.
--- NOTE | 2020-08-14 19:26 | NUR ---
PATIENT RESTING IN BED WITH NO S/S OF DISTRESS AND DENIES NEEDS AT THIS TIME. AT BEDSIDE. BED IN LOWEST POSITION AND CALL LIGHT IN REACH. ENCOURAGED TO CALL WITH NEEDS.
[2020-08-14 20:00] VITALS: BP 126/63
--- NOTE | 2020-08-14 20:44 | NUR ---
ADMINISTERED MEDS PER ORDERS. ENCOURAGED TO CALL WITH NEEDS.
[2020-08-15 01:10] VITALS: BP 138/66
[2020-08-15 04:00] VITALS: BP 136/72
[2020-08-15 05:50] LABS: BASOPHILS 0.3 % (0-2); EOSINOPHILS 3.3 % (0-7); HEMATOCRIT 36.8 % (42.0-54.0); HEMOGLOBIN 11.9 g/dL (13.5-17.5); IMMATURE GRANULOCYTES 0.3 % (0-5); MCH 28.3 pg (26.0-34.0); MCHC 32.3 g/dL (31.0-37.0); MCV 87.4 fL (80.0-100.0); MEAN PLATELET VOLUME 10.1 fL (7.4-10.4); MONOCYTES 12.3 % (2-11); NEUTROPHIL ABS# 1.86 10x3/uL (1.78-5.38); NEUTROPHILS 47.8 % (40-80); PLATELET COUNT 150 10x3/uL (130-400); RBC 4.21 10x6/uL (4.20-6.10)
[2020-08-15 05:51] LABS: WBC 3.9 10x3/uL (4.8-10.8)
[2020-08-15 06:37] LABS: ALBUMIN 2.9 g/dL (3.4-5.0); ANION GAP 11.6 mmol/L (8-16); BILIRUBIN - TOTAL 0.3 mg/dL (0.2-1.3); CALCIUM 9.3 mg/dL (8.5-10.1); CARBON DIOXIDE 25.5 mmol/L (21.0-32.0); CREATININE - SERUM 1.2 mg/dL (0.6-1.3); MAGNESIUM - SERUM 2.1 mg/dL (1.8-2.4); POTASSIUM - SERUM 4.1 mmol/L (3.5-5.1)
--- NOTE | 2020-08-15 07:30 | NUR ---
PT STATES PAIN IS OK WHILE HE IS LAYING STILL BUT A 10 WHEN HE MOVES. CL IN REACH. PT REQUESTED AND RECIEVED COFFEE, BLACK. NO FURTER NEEDS AT THIS TIME. WCTM
[2020-08-15 08:17] VITALS: BP 152/76
[2020-08-15 12:11] VITALS: BP 148/61
--- NOTE | 2020-08-15 12:31 | NUR ---
PT CLEAN LINENS PROVIDED. PT HAD A SHOWER. TELE REAPPLIED. CL IN REACH. NO FURTHER NEEDS AT THIS TIME. WCTM
[2020-08-15 16:25] VITALS: BP 130/69
[2020-08-15 19:46] VITALS: BP 140/73
[2020-08-16 00:12] VITALS: BP 138/72
[2020-08-16 04:00] VITALS: BP 142/78
--- NOTE | 2020-08-16 06:21 | NUR ---
I have reviewed this patient and I concur with the Shift Assessment completed by the Licensed Practical Nurse today this shift.
[2020-08-16 06:46] LABS: BASOPHILS 0.3 % (0-2); EOSINOPHILS 1.9 % (0-7); HEMATOCRIT 35.4 % (42.0-54.0); HEMOGLOBIN 11.3 g/dL (13.5-17.5); LYMPHOCYTE ABS# 1.25 10x3/uL (1.32-3.57); LYMPHOCYTES 39.9 % (15-50); MCH 27.8 pg (26.0-34.0); MCHC 31.9 g/dL (31.0-37.0); MEAN PLATELET VOLUME 9.6 fL (7.4-10.4); MONOCYTES 12.1 % (2-11); NEUTROPHIL ABS# 1.43 10x3/uL (1.78-5.38); NEUTROPHILS 45.8 % (40-80); PLATELET COUNT 163 10x3/uL (130-400); RBC 4.07 10x6/uL (4.20-6.10); RDW 14.9 % (11.5-14.5); WBC 3.1 10x3/uL (4.8-10.8)
[2020-08-16 07:08] LABS: ALBUMIN 2.9 g/dL (3.4-5.0); ANION GAP 10.5 mmol/L (8-16); BILIRUBIN - TOTAL 0.25 mg/dL (0.2-1.3); CALCIUM 9.1 mg/dL (8.5-10.1); CARBON DIOXIDE 26.4 mmol/L (21.0-32.0); CREATININE - SERUM 1.2 mg/dL (0.6-1.3); MAGNESIUM - SERUM 2.3 mg/dL (1.8-2.4); POTASSIUM - SERUM 3.9 mmol/L (3.5-5.1); PROTEIN - SERUM 7.2 g/dL (6.4-8.2)
[2020-08-16 08:49] VITALS: BP 153/92
--- NOTE | 2020-08-16 09:28 | NUR ---
ALERT AND ORIENTED. ASSESSMENT COMPLETE. BED LOW. CALL TEMPLE AND PERSONAL ITEMS IN REACH. WILL CONTINUE TO MONITOR.
--- NOTE | 2020-08-16 11:05 | NUR ---
IV OCCLUDED TO RIGHT WRIST. REMOVED WITH TIP INTACT. RESITED TO RFA BY STUDENT NURSE AFTER ONE ATTEMPT WITH 22 GAUGE.
[2020-08-16 11:44] VITALS: BP 176/67
[2020-08-16 16:52] VITALS: BP 139/76
--- NOTE | 2020-08-16 17:53 | NUR ---
OT NOTE: PT REQUIRED SPV FOR BED MOBILITY TASKS. PT COMPLETED ADL MOB SBA. PT REQUIRED TOTAL A WITH MEDICAL EQUIPMENT MANAGEMENT. PT COMPLETED TOILET HYGIENE WITH SPV. PT COMPLETED RORY/DOFF SOCK WITH SPV. [phone] THANK YOU, VAMSHI BOSS
[2020-08-16 20:00] VITALS: BP 147/66
[2020-08-17] VITALS: BP 126/67
[2020-08-17 04:00] VITALS: BP 120/78
[2020-08-17 06:48] LABS: BASOPHILS 0.3 % (0-2); EOSINOPHILS 2.1 % (0-7); HEMATOCRIT 34.8 % (42.0-54.0); HEMOGLOBIN 11.5 g/dL (13.5-17.5); LYMPHOCYTE ABS# 1.35 10x3/uL (1.32-3.57); LYMPHOCYTES 40.3 % (15-50); MCH 28.7 pg (26.0-34.0); MCV 86.8 fL (80.0-100.0); MEAN PLATELET VOLUME 9.5 fL (7.4-10.4); MONOCYTES 10.7 % (2-11); NEUTROPHIL ABS# 1.56 10x3/uL (1.78-5.38); NEUTROPHILS 46.6 % (40-80); PLATELET COUNT 190 10x3/uL (130-400); RBC 4.01 10x6/uL (4.20-6.10); RDW 14.8 % (11.5-14.5); WBC 3.4 10x3/uL (4.8-10.8)
--- NOTE | 2020-08-17 07:13 | NUR ---
PT RESTED WELL THROUGHOUT SHIFT. ALERT AND ORIENTED. NO PAIN NOR DISTRESS NOTED AT THIS TIME. ABLE TO MAKE WANTS AND NEEDS CLEAR. SLEPT WITH HOME CPAP LAST NIGHT. BED IN LOWEST POSITION. CALL TEMPLE LIGHT IN REACH.
[2020-08-17 07:45] LABS: ALBUMIN 3.1 g/dL (3.4-5.0); ANION GAP 13.1 mmol/L (8-16); BILIRUBIN - TOTAL 0.18 mg/dL (0.2-1.3); CALCIUM 9.1 mg/dL (8.5-10.1); CARBON DIOXIDE 24.2 mmol/L (21.0-32.0); CREATININE - SERUM 1.1 mg/dL (0.6-1.3); MAGNESIUM - SERUM 2.1 mg/dL (1.8-2.4); POTASSIUM - SERUM 4.3 mmol/L (3.5-5.1); PROTEIN - SERUM 6.8 g/dL (6.4-8.2)
[2020-08-17 08:26] VITALS: BP 159/72
--- NOTE | 2020-08-17 09:19 | NUR ---
RESTING IN BED, NO DSITRESS NOTED, TELE IN PLACE, S ARSALAN AT 59, IV INFUSING, CONT TO MONITOR SUGARS AND VANC LEVEL THIS AM
[2020-08-17] MEDS ORDERED: ZYVOX600 MG PO (09:20)
[2020-08-17] MEDS ORDERED: FLORAJEN3 CAPS460 MG PO (09:20)
[2020-08-17 09:37] LABS: CHOL - HDL RATIO 5.3 ratio (2.3-4.9)
--- NOTE | 2020-08-17 13:45 | NUR ---
TAKEN FROM HOSPITAL PER W/C
--- NOTE | 2020-08-17 14:18 | NUR ---
REVIEWED DC ORDERS WITH PT, VOICED NO CONCERNS
--- NOTE | 2020-08-17 15:01 | MORECARE ---
CASE MANAGEMENT DISCHARGE SUMMARY PATIENT: CHERELLE AGEE UNIT: [id number] ADM DATE: 08/13/20 AGE: 80 : 40 SEX: M ROOM/BED: D.2211 AUTHOR: CHANNING,DOC PHYSICIAN: REFERRING PHYSICIAN: DICK NATION DO DATE OF SERVICE: 08/17/20 Case Management Discharge Planning Summary CT Patient Name: CHERELLE AGEE Attending MD : DICK MEI Medical Record: [id number] Encounter : [id number] Facility : [address] [place] [address] Medical Admission Date : 117:18 Center Discharge Date : 08/17/[address] [place] [address] Date of : DC Plan ID : [id number] Age/Sex/Martia : 80/ M/M Printed on : 08/17/20 15:00 CT DCP Review Details Anticipated D/C: Expected LOS : Case Status : INITIATED - Initial Reviewe: [id number] - Sera Myrick Initial Review: 08/13/2020 Planned Disposi: 01 - Home or Self Care (Routine Discharge) Final Discharge: - Final Reviewer : : Final Review : DCP Focus Questions & Answers DCP Screen High Risk Factors: Polypharmacy (greater than 10 meds) DCP Evaluation Patient's current cognitive status: *Oriented to person, place, situation, time and present Patient's ability to cope with chronic illness a. Adequate (0-3 ED visits in 6 mos., adequate financial resources, attends scheduled appts.) Functional screen assessment: Basic needs can adequately be met by self Family / Caregiver's ability to cope with chronic a. Adequate (ability to meet patient's illness: medical needs, ensures patient attends medical appts.) Physical Status: Independent with ADL's Equipment needed for post hospitalization: Cane - Single Leg Living Arrangements: Home with Spouse/Significant Other Patient with capacity for self-care or can be Yes cared for in same environment as prior to hospitalization? Baseline cognitive status: *Oriented to person, place, situation, time and present Physical environment modification needed / No anticipated for discharge: Planned post hospital services available for No patient? Does Patient have transportation to get home and Yes to follow-up medical appointments when discharged from the hospital? Comments: DAUGHTER ISDRIVING HIM HOME Would patient like to participate in any Care Not applicable Coordination programs (if applicable): Other Care Coordination programs/comments: REFUSED HOME HEALTH Does the patient have electricity at home? Yes Does the patient have running water in their Yes house? Equipment in use: Cane - Single Leg Mental health screen: No mental health history DCP Re-evaluation Would patient like to participate in any Care Not applicable Coordination programs (if applicable): [facility] CHERELLE AGEE MR#: [id number] /Age/Sex/Xxnmlm3-[id number]-44 /80/M /M Attending Physician Name: JABARI NATION [id number] Patient Account:[id number] [facility] Page -1 of 1 All edits/amendments must be made on the electronic document DICTATION DATE: 08/17/201499 BUSINESS SERVICES SALES REPRESENTATIVE: NEO 08/17/201499 RPT#: [id number] DC DATE:08/17/20 STATUS: DIS IN [facility] [address] [place] [address] END OF REPORT
--- NOTE | 2020-08-17 15:37 | MORECARE ---
CASE MANAGEMENT DISCHARGE SUMMARY PATIENT: CHERELLE AGEE UNIT: [id number] ADM DATE: 08/13/20 AGE: 80 : 40 SEX: M ROOM/BED: D.2211 AUTHOR: CHANNING,DOC PHYSICIAN: REFERRING PHYSICIAN: DICK NATION DO DATE OF SERVICE: 08/17/20 Case Management Discharge Planning Summary CT Patient Name: CHERELLE AGEE Attending MD : DICK MEI Medical Record: [id number] Encounter : [id number] Facility : [address] [place] [address] Medical Admission Date : 117:18 Center Discharge Date : 08/17/[address] [place] [address] Date of : DC Plan ID : [id number] Age/Sex/Martia : 80/ M/M Printed on : 08/17/20 15:35 CT DCP Review Details Anticipated D/C: Expected LOS : Case Status : INITIATED - Initial Reviewe: [id number] - Sera Myrick Initial Review: 08/13/2020 Planned Disposi: 01 - Home or Self Care (Routine Discharge) Final Discharge: - Final Reviewer : : Final Review : Comments CT Entered Date Type Reviewer 08/17/20 14:58 CT Discharge Planning Sera Myrick Comment CM met with patient to complete initial dc planning assessment. CM educated patient on the CM role and verbal consent given by patient to complete assessment. Patient lives at home with his spouse where he is independent with his care. At discharge patient plans to return home and feels this is a safe discharge. CM discussed availability of home health, rehab services, and medical equipment. Patient denied known discharge needs at this time. IMM served and signed. He did not want home health. Declination signed. Patients daughter will drive him home CM will continue to follow and will assist as needed with dc plans/needs. DCP Focus Questions & Answers DCP Screen High Risk Factors: Polypharmacy (greater than 10 meds) DCP Evaluation Patient's current cognitive status: *Oriented to person, place, situation, time and present Patient's ability to cope with chronic illness a. Adequate (0-3 ED visits in 6 mos., adequate financial resources, attends scheduled appts.) Functional screen assessment: Basic needs can adequately be met by self Family / Caregiver's ability to cope with chronic a. Adequate (ability to meet patient's illness: medical needs, ensures patient attends medical appts.) Physical Status: Independent with ADL's Equipment needed for post hospitalization: Cane - Single Leg Living Arrangements: Home with Spouse/Significant Other Patient with capacity for self-care or can be Yes cared for in same environment as prior to hospitalization? Baseline cognitive status: *Oriented to person, place, situation, time and present Physical environment modification needed / No anticipated for discharge: Planned post hospital services available for No patient? Does Patient have transportation to get home and Yes to follow-up medical appointments when discharged from the hospital? Comments: DAUGHTER ISDRIVING HIM HOME Would patient like to participate in any Care Not applicable Coordination programs (if applicable): Other Care Coordination programs/comments: REFUSED HOME HEALTH Does the patient have electricity at home? Yes Does the patient have running water in their Yes house? Equipment in use: Cane - Single Leg Mental health screen: No mental health history DCP Re-evaluation Would patient like to participate in any Care Not applicable Coordination programs (if applicable): [facility] CHERELLE AGEE MR#: [id number] /Age/Sex/Yduuwn2-Vgd-29 /80/M /M Attending Physician Name: JABARI NATION [id number] Patient Account:[id number] [facility] Page -1 of 1 All edits/amendments must be made on the electronic document DICTATION DATE: 08/17/201534 COMPUTER DRAFTER: NEO 08/17/201534 RPT#: [id number] DC DATE:08/17/20 STATUS: DIS IN [facility] [address] [place] [address] END OF REPORT
== END 2020-08-17 13:45 | disposition home or self-care (01) | DRG 690 ==
LOC: D.ER 15:07 → D.MS 17:18
PROVIDERS: Emergency Medicine; Family Medicine; ADMIT Family Medicine; ATTEND Family Medicine
DX: N10 Acute pyelonephritis (principal); K42.0 Umbilical hernia with obstruction, without gangrene; K63.89 Other specified diseases of intestine; E11.22 Type 2 diabetes mellitus with diabetic chronic kidney disease; I12.9 Hypertensive chronic kidney disease with stage 1 through stage 4 chronic kidney disease, or unspecified chronic kidney disease; N18.9 Chronic kidney disease, unspecified; I25.10 Atherosclerotic heart disease of native coronary artery without angina pectoris; G47.33 Obstructive sleep apnea (adult) (pediatric); E11.65 Type 2 diabetes mellitus with hyperglycemia; N17.9 Acute kidney failure, unspecified; D63.1 Anemia in chronic kidney disease; R94.31 Abnormal electrocardiogram [ECG] [EKG]; K42.9 Umbilical hernia without obstruction or gangrene